=== PATIENT | female | born 1965 | race Caucasian/White ===

== ENCOUNTER 2019-03-09 14:54 | Emergency (ER) | payer OTHER ==
[~2019-03-09] VITALS: Ht 167.6 cm; Wt 62.6 kg
[2019-03-09 15:07] VITALS: BP 153/96; Ht 167.6 cm; Wt 62.6 kg
[2019-03-09] MEDS ORDERED: ONDANSETRON (ODT) 4 MG TAB ODT STA (15:33)
[2019-03-09] MEDS ORDERED: ONDA4TAB14 PO (15:34)
[2019-03-09 15:56] VITALS: PULSE 106; RESP 21
--- NOTE | 2019-03-09 17:38 | ERD ---
ER Documentation Chief Complaint Chief Complaint SHAKING, PT STATES HAS BEEN DRINKING ALL WEEKEND, NO SI HPI Patient is a 54-year-old female with hypertension who presents with alcohol with drawal. The patient says that she has had 3 days of "binge drinking". She stopped today. She felt shaky and nausea. She called her insurance who told her to go to the emergency department. She said that she has been drinking from 11 AM to 9 PM daily until she passes out. She was drinking whiskey and beer. Upon review of old medical records this is the patient's first visit to the emergency department. Her primary doctor is Dr. Cipriano Mansfield. ROS All systems reviewed and are negative except as per history of present illness. Medications Home Meds Active Scripts Ondansetron (Ondansetron Odt) 4 Mg Tab.rapdis, 4 MG PO Q6H PRN for NAUSEA AND/OR VOMITING, #10 TAB Prov:LAYA AYON MD 03/09/19 PMhx/Soc Medical and Surgical Hx: pt denies Medical Hx, pt denies Surgical Hx History of Surgery: No Anesthesia Reaction: No Hx Neurological Disorder: No Hx Respiratory Disorders: No Hx Cardiac Disorders: No Hx Psychiatric Problems: No Hx Miscellaneous Medical Probl: No Hx Alcohol Use: Yes (occassionally) Hx Substance Use: No Hx Tobacco Use: Yes Smoking Status: Current some day smoker FmHx Family History: No diabetes Physical Exam Vitals Vital Signs Date Temp Pulse Resp B/P (MAP) Pulse Ox O2 O2 Flow FiO2 Time Delivery Rate 03/09/19 106 21 99 Room Air 15:56 03/09/19 99.6 94 17 153/96 99 15:07 (115) Physical Exam Const: No acute distress Head: Atraumatic Eyes: Normal Conjunctiva ENT: Normal External Ears, Nose and Mouth. Neck: Full range of motion. No meningismus. Resp: Clear to auscultation bilaterally Cardio: Regular rate and rhythm, no murmurs Abd: Soft, non tender, non distended. Normal bowel sounds Skin: No petechiae or rashes Back: No midline or flank tenderness Ext: No cyanosis, or edema Neur: Awake and alert Psych: Normal Mood and Affect Results 24 hrs Current Medications Medications Dose Sig/Haile Start Time Status Last (Trade) Ordered Route PRN Stop Time Admin Dose Reason Admin Ondansetron 4 mg ONCE STAT 03/09/19 DC 03/09/19 HCl (Zofran ODT 15:33 15:59 Odt) 03/09/19 15:34 Procedures/MDM Patient is a 54-year-old female who presents with acute alcohol withdrawal. I doubt acute delirium tremens at this time. She is awake and answering questions appropriately. She was given information for the local outpatient detox facilities as we do not do inpatient detox here at the hospital. She can return for any worsening symptoms. Departure Diagnosis: Primary Impression: Alcohol withdrawal Complication of substance-induced condition: uncomplicated Qualified Codes: F10.230 - Alcohol dependence with withdrawal, uncomplicated Condition: Fair Patient Instructions: Alcohol Withdrawal Referrals: Alcohol detox facility Additional Instructions: Call your primary care doctor TOMORROW for an appointment during the next 1-2 days.See the doctor sooner or return here if your condition worsens before your appointment time. ALYA AYON MD Mar 09, 2019 17:38
== END 2019-03-09 15:55 | disposition home or self-care (01) ==
LOC: E/R 14:54
DX: F10.230 Alcohol dependence with withdrawal, uncomplicated (principal); I10 Essential (primary) hypertension; F17.210 Nicotine dependence, cigarettes, uncomplicated
CPT/HCPCS: Z7502; Z7610; 99283